=== PATIENT | male | born 1950 | race Caucasian/White ===

== ENCOUNTER 2023-06-10 02:39 | Inpatient (IN) | payer OTHER ==
[2023-06-10] MEDS ORDERED: levETIRAcetam 500 MG/5 ML INJECTION VIAL IVPB ONE ×3 (02:45→22:16)
[2023-06-10] MEDS ORDERED: SODIUM CHLORIDE 0.9% 500 ML INFUS.BAG IV ONE (02:52)
[2023-06-10] MEDS ORDERED: VANCOMYCIN 1,000 MG in DEXTROSE 5%-WATER - 250 ML IVPB ONE (02:58)
[2023-06-10] MEDS ORDERED: PIPERACILLIN/TAZOB 4.5 GM 4.5 GM in DEXTROSE 5%-WATER 100 ML IVPB ONE (02:58)
[2023-06-10] MEDS ORDERED: ACETAMINOPHEN 1000 MG/100 ML BAG IVPB ONE ×2 (03:03→11:01)
[2023-06-10 03:18] LABS: VENOUS BASE EXCESS -1.3 mmol/L (-2-2); VENOUS O2 SATURATION 57.8 % (70-80); VENOUS PCO2 42.1 mmHg (38-52); VENOUS PH 7.373 (7.310-7.410)
[2023-06-10 03:21] LABS: BASO % 0.1 % (0-2.0); HEMATOCRIT 37.7 % (35.4-49); HEMOGLOBIN 12.8 GM/dL (11.7-16.9); LYMPH % 6.9 % (8-40); MCHC 33.9 g/dl (32.0-35.9); MEAN CELL VOLUME 88.4 fl (80-96); MEAN PLT VOLUME 7.8 fl (7.5-11.1); PLATELET COUNT 281 10^3/uL (134-434); RBC 4.26 M/mm3 (4.00-5.60); WHITE BLOOD COUNT 10.3 K/mm3 (4.0-10.0)
[2023-06-10 03:38] LABS: POTASSIUM 3.8 mmol/L (3.5-5.1)
[2023-06-10 03:41] LABS: ALBUMIN 3.9 g/dl (3.4-5.0); BLOOD UREA NITROGEN 84.6 mg/dL (7-18); MAGNESIUM 2.7 mg/dL (1.8-2.4)
[2023-06-10 03:44] LABS: CREATININE 3.2 mg/dL (0.55-1.3)
[2023-06-10 03:45] LABS: TOT PROT 7.6 g/dl (6.4-8.2)
[2023-06-10 03:46] LABS: BILIRUBIN,TOTAL 0.6 mg/dL (0.2-1)
[2023-06-10] MEDS ORDERED: PIPERACILLIN/TAZOB 4.5 GM 4.5 GM/100 ML BAG IVPB ONE (03:55)
[2023-06-10] MEDS ORDERED: VANCOMYCIN 1 GRAM (PRE-DOCKED) 1,000 MG/250 ML BAG IVPB ONE ×2 (03:56→22:16)
[2023-06-10 04:02] LABS: LACTIC ACID 3.1 mmol/L (0.4-2.0)
[2023-06-10 04:35] LABS: EPI CELLS 26 /uL (0-25.1); HYALINE CASTS 1 /uL (0-3.1); URINE APPEARANCE CLEAR; URINE BACTERIA 3936 /uL (0-1359); URINE BILIRUBIN NEGATIVE (NEGATIVE); URINE COLOR YELLOW; URINE GLUCOSE (UA) NEGATIVE (NEGATIVE); URINE KETONE TRACE (NEGATIVE); URINE LEUK ESTERASE 1+ (NEGATIVE); URINE NITRITE NEGATIVE (NEGATIVE); URINE PROTEIN TRACE (NEGATIVE); URINE RBC 176 /uL (0-23.9); URINE WBC 91 /uL (0-25.8)
[2023-06-10] MEDS ORDERED: POTASSIUM CHLORIDE 10 MEQ in SODIUM CHLORIDE 0.45% 1,000 ML IVPB SCH (06:30)
[2023-06-10 08:24] LABS: LACTIC ACID 2.1 mmol/L (0.4-2.0)
[2023-06-10] MEDS: SODIUM CHLORIDE 0.45% 1,000 ML IV SCH (08:31)
[2023-06-10] MEDS ORDERED: PIPERACILLIN/TAZOB 2.25 GM 2.25 GM/50 ML BAG IVPB ONE ×2 (09:24→18:20)
[2023-06-10] MEDS ORDERED: ACETAMINOPHEN INJECTION 100 ML IVPB ONE (09:42)
[2023-06-10] MEDS: PIPERACILLIN/TAZOB 2.25 GM 2.25 GM in DEXTROSE 5%-WATER - 50 ML IVPB SCH ×2 (09:56→18:21)
[2023-06-10] MEDS ORDERED: PIPERACILLIN/TAZOB 2.25 GM 2.25 GM in DEXTROSE 5%-WATER - 50 ML IVPB SCH (10:00)
[2023-06-10] MEDS ORDERED: SODIUM CHLORIDE 500 ML IV STA (11:01)
[2023-06-10] MEDS ORDERED: D5-1/2NS+20 MEQ KCL - 20 MEQ/1,000 ML INFUS.BAG IV SCH ×2 (11:15)
[2023-06-10] MEDS ORDERED: VANCOMYCIN/WATER FOR INJ (PEG) 1,000 MG/200 ML BAG IVPB SCH (22:00)
[2023-06-10] MEDS ORDERED: levETIRAcetam 500 MG/5 ML INJECTION VIAL IVPB SCH (22:00)
[2023-06-10] MEDS: levETIRAcetam 500 MG/5 ML INJECTION VIAL IVPB SCH (22:24)
[2023-06-10] MEDS ORDERED: diazePAM CARPU-JECT 10 MG/2 ML DISP.SYRIN IVPUSH ONE (22:42)
[2023-06-10] MEDS ORDERED: diazePAM CARPU-JECT 10 MG/2 ML DISP.SYRIN ONE (22:45)
[2023-06-11] MEDS: PIPERACILLIN/TAZOB 2.25 GM 2.25 GM in DEXTROSE 5%-WATER - 50 ML IVPB SCH ×4 (02:10→18:22)
[2023-06-11] MEDS ORDERED: PIPERACILLIN/TAZOB 2.25 GM 2.25 GM/50 ML BAG IVPB ONE (02:13)
[2023-06-11] MEDS ORDERED: VANCOMYCIN 1 GM PREMIX - 1 GM/200 ML BAG IVPB SCH (04:00)
[2023-06-11] MEDS ORDERED: VANCOMYCIN 1,000 MG in DEXTROSE 5%-WATER - 250 ML IVPB SCH (04:00)
[2023-06-11] MEDS ORDERED: CEFTRIAXONE 2 GM-D5W BAG 2 GM/50 ML BAG IVPB ONE (12:02)
[2023-06-11 12:10] LABS: HEMOGLOBIN 12.6 GM/dL (11.7-16.9); MCH 29.8 pg (25.7-33.7); MCHC 33.1 g/dl (32.0-35.9); MEAN CELL VOLUME 90.1 fl (80-96); MEAN PLT VOLUME 8.2 fl (7.5-11.1); PLATELET COUNT 261 10^3/uL (134-434); RBC 4.22 M/mm3 (4.00-5.60); RDW 14.5 % (11.9-15.9); WHITE BLOOD COUNT 11.4 K/mm3 (4.0-10.0)
[2023-06-11] MEDS ORDERED: CEFTRIAXONE 1 GM in DEXTROSE 5%-WATER 100 ML IVPB ONE (12:22)
[2023-06-11 12:24] LABS: CALCIUM 9.4 mg/dL (8.5-10.1); MAGNESIUM 2.9 mg/dL (1.8-2.4)
[2023-06-11 12:28] LABS: CREATININE 1.5 mg/dL (0.55-1.3); PHOSPHOROUS 2.6 mg/dL (2.5-4.9)
[2023-06-11 12:40] LABS: BLOOD UREA NITROGEN 58.1 mg/dL (7-18)
[2023-06-11] MEDS: levETIRAcetam 500 MG/5 ML INJECTION VIAL IVPB SCH ×2 (12:42→21:38)
[2023-06-11] MEDS: SODIUM CHLORIDE 0.45% 1,000 ML IV SCH (12:55)
[2023-06-11] MEDS: LEVALBUTEROL HCL 0.31 MG/3 ML VIAL.NEB IH SCH ×2 (15:10→21:24)
[2023-06-11] MEDS ORDERED: levETIRAcetam 500 MG/5 ML INJECTION VIAL IVPB ONE (16:51)
[2023-06-12] MEDS: PIPERACILLIN/TAZOB 2.25 GM 2.25 GM in DEXTROSE 5%-WATER - 50 ML IVPB SCH ×3 (02:34→17:23)
[2023-06-12] MEDS ORDERED: ACETAMINOPHEN 1000 MG/100 ML BAG IVPB ONE (06:08)
[2023-06-12] MEDS: LEVALBUTEROL HCL 0.31 MG/3 ML VIAL.NEB IH SCH ×3 (08:01→19:52)
[2023-06-12] MEDS: levETIRAcetam 500 MG/5 ML INJECTION VIAL IVPB SCH ×2 (09:56→21:49)
[2023-06-12] MEDS ORDERED: ACETAMINOPHEN 325 MG TABLET (FP) PO PRN (10:35)
[2023-06-12] MEDS: SODIUM CHLORIDE 0.45% 1,000 ML IV SCH (12:33)
[2023-06-12] MEDS ORDERED: METOPROLOL TARTRATE 5 MG/5 ML VIAL IVPUSH PRN (14:28)
[2023-06-12] MEDS: ACETAMINOPHEN 1000 MG/100 ML BAG IVPB PRN (14:48)
[2023-06-13] MEDS: PIPERACILLIN/TAZOB 2.25 GM 2.25 GM in DEXTROSE 5%-WATER - 50 ML IVPB SCH ×3 (01:04→18:31)
[2023-06-13] MEDS: ACETAMINOPHEN 1000 MG/100 ML BAG IVPB PRN ×2 (02:51→16:06)
[2023-06-13 07:09] LABS: BASO % 0.3 % (0-2.0); EOS % 0.2 % (0-4.5); HEMATOCRIT 37.7 % (35.4-49); HEMOGLOBIN 12.2 GM/dL (11.7-16.9); LYMPH % 9.4 % (8-40); MCH 30.1 pg (25.7-33.7); MCHC 32.4 g/dl (32.0-35.9); MEAN CELL VOLUME 92.9 fl (80-96); MEAN PLT VOLUME 8.4 fl (7.5-11.1); MONO % 5.5 % (3.8-10.2); NEUT % 84.6 % (42.8-82.8); PLATELET COUNT 235 10^3/uL (134-434); RBC 4.06 M/mm3 (4.00-5.60); RDW 14.4 % (11.9-15.9); WHITE BLOOD COUNT 9.9 K/mm3 (4.0-10.0)
[2023-06-13 07:17] LABS: POTASSIUM 4.1 mmol/L (3.5-5.1)
[2023-06-13] MEDS: LEVALBUTEROL HCL 0.31 MG/3 ML VIAL.NEB IH SCH ×3 (07:20→20:45)
[2023-06-13 07:22] LABS: BLOOD UREA NITROGEN 40.8 mg/dL (7-18); CALCIUM 8.7 mg/dL (8.5-10.1)
[2023-06-13 07:26] LABS: BILIRUBIN,TOTAL 1.2 mg/dL (0.2-1); CREATININE 1.5 mg/dL (0.55-1.3)
[2023-06-13 07:27] LABS: TOT PROT 6.9 g/dl (6.4-8.2)
[2023-06-13 07:38] LABS: ALBUMIN 3.1 g/dl (3.4-5.0)
[2023-06-13] MEDS: levETIRAcetam 500 MG/5 ML INJECTION VIAL IVPB SCH ×2 (10:39→22:57)
[2023-06-13] MEDS: SODIUM CHLORIDE 0.45% 1,000 ML IV SCH (10:39)
[2023-06-13] MEDS ORDERED: DEXTROSE 5%-WATER - 1,000 ML IV SCH (15:30)
[2023-06-13] MEDS: VALPROATE SODIUM INJECTION 500 MG in SODIUM CHLORIDE 100 ML IVPB SCH (21:27)
[2023-06-13] MEDS ORDERED: VALPROATE SODIUM 500 MG/5 ML VIAL IVPB SCH (22:00)
[2023-06-14] MEDS: PIPERACILLIN/TAZOB 2.25 GM 2.25 GM in DEXTROSE 5%-WATER - 50 ML IVPB SCH ×3 (03:15→17:29)
[2023-06-14] MEDS: ACETAMINOPHEN 1000 MG/100 ML BAG IVPB PRN ×2 (03:40→15:06)
[2023-06-14 07:33] LABS: BASO % 0.2 % (0-2.0); EOS % 0.7 % (0-4.5); HEMATOCRIT 35.8 % (35.4-49); HEMOGLOBIN 12.1 GM/dL (11.7-16.9); LYMPH % 8.5 % (8-40); MCH 30.5 pg (25.7-33.7); MCHC 33.7 g/dl (32.0-35.9); MEAN CELL VOLUME 90.4 fl (80-96); MEAN PLT VOLUME 8.5 fl (7.5-11.1); NEUT % 84.6 % (42.8-82.8); PLATELET COUNT 238 10^3/uL (134-434); RBC 3.96 M/mm3 (4.00-5.60); RDW 14.3 % (11.9-15.9); WHITE BLOOD COUNT 11.4 K/mm3 (4.0-10.0)
[2023-06-14] MEDS: LEVALBUTEROL HCL 0.31 MG/3 ML VIAL.NEB IH SCH ×3 (08:30→21:03)
[2023-06-14 08:36] LABS: POTASSIUM 3.5 mmol/L (3.5-5.1)
[2023-06-14 08:38] LABS: ALBUMIN 2.9 g/dl (3.4-5.0); CALCIUM 8.4 mg/dL (8.5-10.1)
[2023-06-14 08:39] LABS: BLOOD UREA NITROGEN 50.7 mg/dL (7-18); MAGNESIUM 2.8 mg/dL (1.8-2.4)
[2023-06-14 08:42] LABS: CREATININE 1.5 mg/dL (0.55-1.3); PHOSPHOROUS 3.2 mg/dL (2.5-4.9)
[2023-06-14 08:43] LABS: BILIRUBIN,TOTAL 0.8 mg/dL (0.2-1); TOT PROT 6.8 g/dl (6.4-8.2)
[2023-06-14] MEDS: levETIRAcetam 500 MG/5 ML INJECTION VIAL IVPB SCH ×2 (09:11→23:44)
[2023-06-14] MEDS: VALPROATE SODIUM INJECTION 500 MG in SODIUM CHLORIDE 100 ML IVPB SCH ×2 (10:16→23:45)
[2023-06-14] MEDS: POTASSIUM CHLORIDE 10 MEQ in DEXTROSE 5%-WATER - 1,000 ML IV SCH (18:11)
[2023-06-15] MEDS: ACETAMINOPHEN 1000 MG/100 ML BAG IVPB PRN ×2 (02:04→16:52)
[2023-06-15] MEDS: PIPERACILLIN/TAZOB 2.25 GM 2.25 GM in DEXTROSE 5%-WATER - 50 ML IVPB SCH ×2 (02:05→09:45)
[2023-06-15] MEDS: POTASSIUM CHLORIDE 10 MEQ in DEXTROSE 5%-WATER - 1,000 ML IV SCH ×2 (06:33→12:48)
[2023-06-15 07:56] LABS: POTASSIUM 3.9 mmol/L (3.5-5.1)
[2023-06-15 08:09] LABS: ALBUMIN 2.5 g/dl (3.4-5.0); BLOOD UREA NITROGEN 40.8 mg/dL (7-18)
[2023-06-15 08:12] LABS: CREATININE 1.3 mg/dL (0.55-1.3)
[2023-06-15 08:14] LABS: BILIRUBIN,TOTAL 0.8 mg/dL (0.2-1); TOT PROT 6.3 g/dl (6.4-8.2)
[2023-06-15] MEDS: LEVALBUTEROL HCL 0.31 MG/3 ML VIAL.NEB IH SCH ×3 (09:00→20:45)
[2023-06-15] MEDS: levETIRAcetam 500 MG/5 ML INJECTION VIAL IVPB SCH ×2 (09:15→21:24)
[2023-06-15] MEDS: VALPROATE SODIUM INJECTION 500 MG in SODIUM CHLORIDE 100 ML IVPB SCH ×2 (12:00→21:28)
[2023-06-15 12:30] VITALS: BMI 17.6
[2023-06-15] MEDS: VANCOMYCIN/WATER FOR INJ (PEG) 1,000 MG/200 ML BAG IVPB SCH (17:34)
[2023-06-15] MEDS: PIPERACILLIN/TAZOB 3.375 GM 3.375 GM in DEXTROSE 5%-WATER - 50 ML IVPB SCH (21:23)
[2023-06-15] MEDS: HEPARIN NA (PORCINE) 5,000 UNITS/ML 1ML VIAL SQ SCH (21:41)
[2023-06-16] MEDS: PIPERACILLIN/TAZOB 3.375 GM 3.375 GM in DEXTROSE 5%-WATER - 50 ML IVPB SCH ×4 (02:03→22:39)
[2023-06-16] MEDS: POTASSIUM CHLORIDE 10 MEQ in DEXTROSE 5%-WATER - 1,000 ML IV SCH ×3 (02:04→18:44)
[2023-06-16] MEDS: LEVALBUTEROL HCL 0.31 MG/3 ML VIAL.NEB IH SCH ×3 (07:39→21:19)
[2023-06-16] MEDS: HEPARIN NA (PORCINE) 5,000 UNITS/ML 1ML VIAL SQ SCH ×2 (09:16→22:41)
[2023-06-16] MEDS: levETIRAcetam 500 MG/5 ML INJECTION VIAL IVPB SCH ×2 (09:45→23:50)
[2023-06-16] MEDS: VALPROATE SODIUM INJECTION 500 MG in SODIUM CHLORIDE 100 ML IVPB SCH ×2 (10:15→23:27)
[2023-06-16 13:10] LABS: HEMATOCRIT 32.6 % (35.4-49); HEMOGLOBIN 10.5 GM/dL (11.7-16.9); MCH 30.1 pg (25.7-33.7); MCHC 32.3 g/dl (32.0-35.9); MEAN CELL VOLUME 93.3 fl (80-96); MEAN PLT VOLUME 9.2 fl (7.5-11.1); PLATELET COUNT 173 10^3/uL (134-434); RDW 14.3 % (11.9-15.9); WHITE BLOOD COUNT 8.9 K/mm3 (4.0-10.0)
[2023-06-16 13:33] LABS: POTASSIUM 3.7 mmol/L (3.5-5.1)
[2023-06-16 13:35] LABS: CALCIUM 8.3 mg/dL (8.5-10.1)
[2023-06-16 13:36] LABS: ALBUMIN 2.3 g/dl (3.4-5.0); BLOOD UREA NITROGEN 26.3 mg/dL (7-18); MAGNESIUM 2.5 mg/dL (1.8-2.4)
[2023-06-16 13:38] LABS: PHOSPHOROUS 2.4 mg/dL (2.5-4.9)
[2023-06-16 13:39] LABS: BILIRUBIN,TOTAL 0.5 mg/dL (0.2-1); TOT PROT 6.1 g/dl (6.4-8.2)
[2023-06-16] MEDS: ACETAMINOPHEN 1000 MG/100 ML BAG IVPB PRN (16:46)
[2023-06-16] MEDS: VANCOMYCIN/WATER FOR INJ (PEG) 1,000 MG/200 ML BAG IVPB SCH (17:15)
[2023-06-16] MEDS: CARBIDOPA/LEVODOPA 25/250 TABLET (FP) NGT SCH ×2 (18:56→22:41)
[2023-06-17] MEDS: PIPERACILLIN/TAZOB 3.375 GM 3.375 GM in DEXTROSE 5%-WATER - 50 ML IVPB SCH ×4 (03:30→21:27)
[2023-06-17] MEDS: POTASSIUM CHLORIDE 10 MEQ in DEXTROSE 5%-WATER - 1,000 ML IV SCH (06:24)
[2023-06-17] MEDS: LEVALBUTEROL HCL 0.31 MG/3 ML VIAL.NEB IH SCH ×3 (07:15→20:35)
[2023-06-17 07:48] LABS: BASO % 0.2 % (0-2.0); EOS % 2.2 % (0-4.5); HEMATOCRIT 31.1 % (35.4-49); HEMOGLOBIN 10.2 GM/dL (11.7-16.9); LYMPH % 5.8 % (8-40); MCH 30.1 pg (25.7-33.7); MEAN CELL VOLUME 91.3 fl (80-96); MEAN PLT VOLUME 9.8 fl (7.5-11.1); MONO % 2.7 % (3.8-10.2); NEUT % 89.1 % (42.8-82.8); PLATELET COUNT 182 10^3/uL (134-434); RDW 14.2 % (11.9-15.9); WHITE BLOOD COUNT 8.3 K/mm3 (4.0-10.0)
[2023-06-17 08:00] LABS: POTASSIUM 3.7 mmol/L (3.5-5.1)
[2023-06-17 08:06] LABS: ALBUMIN 2.2 g/dl (3.4-5.0); BLOOD UREA NITROGEN 25.4 mg/dL (7-18); CALCIUM 8.3 mg/dL (8.5-10.1); MAGNESIUM 2.3 mg/dL (1.8-2.4)
[2023-06-17 08:08] LABS: CREATININE 0.9 mg/dL (0.55-1.3)
[2023-06-17 08:10] LABS: BILIRUBIN,TOTAL 0.4 mg/dL (0.2-1); PHOSPHOROUS 2.8 mg/dL (2.5-4.9); TOT PROT 5.9 g/dl (6.4-8.2)
[2023-06-17] MEDS: CARBIDOPA/LEVODOPA 25/250 TABLET (FP) NGT SCH ×4 (10:21→22:29)
[2023-06-17] MEDS: levETIRAcetam 500 MG/5 ML INJECTION VIAL IVPB SCH ×2 (10:21→22:27)
[2023-06-17] MEDS: AMINO ACIDS 4.25%/D5W 1,000 ML IV SCH (10:21)
[2023-06-17] MEDS: HEPARIN NA (PORCINE) 5,000 UNITS/ML 1ML VIAL SQ SCH ×2 (10:21→22:29)
[2023-06-17] MEDS: VALPROATE SODIUM INJECTION 500 MG in SODIUM CHLORIDE 100 ML IVPB SCH ×2 (11:13→22:26)
[2023-06-17] MEDS ORDERED: LORazepam 2 MG/ML SDV VIAL IVPB ONE (14:07)
[2023-06-17] MEDS: ACETAMINOPHEN 1000 MG/100 ML BAG IVPB PRN ×2 (16:30→22:29)
[2023-06-17] MEDS: VANCOMYCIN/WATER FOR INJ (PEG) 1,000 MG/200 ML BAG IVPB SCH ×2 (17:03→19:14)
[2023-06-18] MEDS: PIPERACILLIN/TAZOB 3.375 GM 3.375 GM in DEXTROSE 5%-WATER - 50 ML IVPB SCH ×4 (02:09→22:15)
[2023-06-18] MEDS ORDERED: METOPROLOL TARTRATE 5 MG/5 ML VIAL IVPUSH PRN (07:14)
[2023-06-18] MEDS: LEVALBUTEROL HCL 0.31 MG/3 ML VIAL.NEB IH SCH ×3 (08:16→20:40)
[2023-06-18] MEDS: AMINO ACIDS 4.25%/D5W 1,000 ML IV SCH (09:08)
[2023-06-18 09:28] LABS: HEMATOCRIT 29.4 % (35.4-49); HEMOGLOBIN 9.8 GM/dL (11.7-16.9); MCH 30.7 pg (25.7-33.7); MCHC 33.3 g/dl (32.0-35.9); MEAN CELL VOLUME 92.3 fl (80-96); MEAN PLT VOLUME 9.9 fl (7.5-11.1); PLATELET COUNT 166 10^3/uL (134-434); RBC 3.19 M/mm3 (4.00-5.60); RDW 14.4 % (11.9-15.9); WHITE BLOOD COUNT 11.5 K/mm3 (4.0-10.0)
[2023-06-18] MEDS: HEPARIN NA (PORCINE) 5,000 UNITS/ML 1ML VIAL SQ SCH ×2 (09:29→22:22)
[2023-06-18] MEDS: CARBIDOPA/LEVODOPA 25/250 TABLET (FP) NGT SCH ×4 (09:29→22:22)
[2023-06-18 09:43] LABS: POTASSIUM 3.8 mmol/L (3.5-5.1)
[2023-06-18] MEDS: levETIRAcetam 500 MG/5 ML INJECTION VIAL IVPB SCH ×2 (09:54→22:22)
[2023-06-18 10:02] LABS: CALCIUM 8.3 mg/dL (8.5-10.1)
[2023-06-18 10:03] LABS: ALBUMIN 2.2 g/dl (3.4-5.0); BLOOD UREA NITROGEN 29.4 mg/dL (7-18); MAGNESIUM 2.5 mg/dL (1.8-2.4)
[2023-06-18 10:05] LABS: PHOSPHOROUS 2.6 mg/dL (2.5-4.9)
[2023-06-18 10:06] LABS: CREATININE 0.9 mg/dL (0.55-1.3)
[2023-06-18 10:07] LABS: BILIRUBIN,TOTAL 0.5 mg/dL (0.2-1); TOT PROT 6.1 g/dl (6.4-8.2)
[2023-06-18 10:11] LABS: ANISOCYTOSIS 1+; MACROCYTOSIS 0
[2023-06-18] MEDS: VALPROATE SODIUM INJECTION 500 MG in SODIUM CHLORIDE 100 ML IVPB SCH (10:38)
[2023-06-18 12:08] LABS: BILIRUBIN,DIRECT 0.2 mg/dL (0.0-0.2)
[2023-06-18 12:10] LABS: BILIRUBIN,TOTAL 0.5 mg/dL (0.2-1); TOT PROT 5.7 g/dl (6.4-8.2)
[2023-06-18 13:24] LABS: HIV INTERPRETATION NEGATIVE (NEGATIVE)
[2023-06-18] MEDS ORDERED: VANCOMYCIN/WATER FOR INJ (PEG) 1,000 MG/200 ML BAG IVPB SCH (17:30)
[2023-06-18] MEDS: ACETAMINOPHEN 1000 MG/100 ML BAG IVPB PRN (23:05)
[2023-06-19] MEDS: VALPROATE SODIUM INJECTION 500 MG in SODIUM CHLORIDE 100 ML IVPB SCH ×3 (00:08→21:39)
[2023-06-19] MEDS: PIPERACILLIN/TAZOB 3.375 GM 3.375 GM in DEXTROSE 5%-WATER - 50 ML IVPB SCH ×4 (02:46→20:45)
[2023-06-19] MEDS: CARBIDOPA/LEVODOPA 25/250 TABLET (FP) NGT SCH ×5 (06:38→21:38)
[2023-06-19] MEDS: AMINO ACIDS 4.25%/D5W 1,000 ML IV SCH ×2 (06:48→11:03)
[2023-06-19] MEDS: LEVALBUTEROL HCL 0.31 MG/3 ML VIAL.NEB IH SCH ×3 (07:35→19:39)
[2023-06-19 09:38] LABS: BASO % 0.3 % (0-2.0); EOS % 1.3 % (0-4.5); HEMATOCRIT 31.4 % (35.4-49); HEMOGLOBIN 9.9 GM/dL (11.7-16.9); LYMPH % 8.4 % (8-40); MCH 29.5 pg (25.7-33.7); MCHC 31.6 g/dl (32.0-35.9); MEAN CELL VOLUME 93.5 fl (80-96); MONO % 3.2 % (3.8-10.2); NEUT % 86.8 % (42.8-82.8); PLATELET COUNT 228 10^3/uL (134-434); RBC 3.36 M/mm3 (4.00-5.60); RDW 14.3 % (11.9-15.9); WHITE BLOOD COUNT 8.8 K/mm3 (4.0-10.0)
[2023-06-19 10:05] LABS: POTASSIUM 3.8 mmol/L (3.5-5.1)
[2023-06-19 10:36] LABS: ALBUMIN 1.9 g/dl (3.4-5.0); BLOOD UREA NITROGEN 30.4 mg/dL (7-18); CALCIUM 8.4 mg/dL (8.5-10.1); MAGNESIUM 2.5 mg/dL (1.8-2.4)
[2023-06-19 10:39] LABS: CREATININE 0.8 mg/dL (0.55-1.3)
[2023-06-19 10:41] LABS: BILIRUBIN,TOTAL 0.4 mg/dL (0.2-1); TOT PROT 5.7 g/dl (6.4-8.2)
[2023-06-19] MEDS: levETIRAcetam 500 MG/5 ML INJECTION VIAL IVPB SCH ×2 (11:01→21:38)
[2023-06-19] MEDS: HEPARIN NA (PORCINE) 5,000 UNITS/ML 1ML VIAL SQ SCH ×2 (11:02→21:38)
[2023-06-19] MEDS: ACETAMINOPHEN 1000 MG/100 ML BAG IVPB PRN (21:36)
[2023-06-20] MEDS: PIPERACILLIN/TAZOB 3.375 GM 3.375 GM in DEXTROSE 5%-WATER - 50 ML IVPB SCH ×4 (02:45→20:39)
[2023-06-20] MEDS: CARBIDOPA/LEVODOPA 25/250 TABLET (FP) NGT SCH ×5 (05:31→21:43)
[2023-06-20] MEDS: ACETAMINOPHEN 1000 MG/100 ML BAG IVPB PRN ×3 (05:31→18:34)
[2023-06-20] MEDS: LEVALBUTEROL HCL 0.31 MG/3 ML VIAL.NEB IH SCH ×3 (07:15→20:01)
[2023-06-20 08:36] LABS: BASO % 0.3 % (0-2.0); EOS % 2.1 % (0-4.5); HEMATOCRIT 29.8 % (35.4-49); HEMOGLOBIN 9.6 GM/dL (11.7-16.9); LYMPH % 12.8 % (8-40); MCH 29.9 pg (25.7-33.7); MCHC 32.1 g/dl (32.0-35.9); MEAN CELL VOLUME 93.2 fl (80-96); MEAN PLT VOLUME 9.1 fl (7.5-11.1); MONO % 4.3 % (3.8-10.2); NEUT % 80.5 % (42.8-82.8); PLATELET COUNT 265 10^3/uL (134-434); RDW 14.1 % (11.9-15.9); WHITE BLOOD COUNT 6.9 K/mm3 (4.0-10.0)
[2023-06-20] MEDS: HEPARIN NA (PORCINE) 5,000 UNITS/ML 1ML VIAL SQ SCH ×2 (09:07→21:43)
[2023-06-20] MEDS: levETIRAcetam 500 MG/5 ML INJECTION VIAL IVPB SCH ×2 (09:08→21:42)
[2023-06-20] MEDS: VALPROATE SODIUM INJECTION 500 MG in SODIUM CHLORIDE 100 ML IVPB SCH ×2 (09:09→22:15)
[2023-06-20 09:49] LABS: POTASSIUM 3.9 mmol/L (3.5-5.1)
[2023-06-20 10:03] LABS: BLOOD UREA NITROGEN 26.9 mg/dL (7-18)
[2023-06-20 10:04] LABS: CALCIUM 8.7 mg/dL (8.5-10.1); MAGNESIUM 2.5 mg/dL (1.8-2.4)
[2023-06-20 10:06] LABS: CREATININE 0.9 mg/dL (0.55-1.3)
[2023-06-20 10:08] LABS: TOT PROT 5.8 g/dl (6.4-8.2)
[2023-06-20 10:10] LABS: BILIRUBIN,TOTAL 0.3 mg/dL (0.2-1)
[2023-06-20] MEDS: AMINO ACIDS 4.25%/D5W 1,000 ML IV SCH ×2 (13:35→21:41)
[2023-06-21] MEDS: ACETAMINOPHEN 1000 MG/100 ML BAG IVPB PRN ×3 (01:20→21:38)
[2023-06-21] MEDS: PIPERACILLIN/TAZOB 3.375 GM 3.375 GM in DEXTROSE 5%-WATER - 50 ML IVPB SCH ×4 (02:15→22:15)
[2023-06-21] MEDS: CARBIDOPA/LEVODOPA 25/250 TABLET (FP) NGT SCH ×5 (06:18→22:07)
[2023-06-21] MEDS: LEVALBUTEROL HCL 0.31 MG/3 ML VIAL.NEB IH SCH ×3 (08:00→20:36)
[2023-06-21 09:25] LABS: BASO % 0.4 % (0-2.0); EOS % 2.1 % (0-4.5); HEMATOCRIT 30.7 % (35.4-49); HEMOGLOBIN 9.8 GM/dL (11.7-16.9); LYMPH % 11.4 % (8-40); MCH 29.6 pg (25.7-33.7); MCHC 31.9 g/dl (32.0-35.9); MEAN CELL VOLUME 92.8 fl (80-96); MONO % 5.2 % (3.8-10.2); NEUT % 80.9 % (42.8-82.8); PLATELET COUNT 284 10^3/uL (134-434); RBC 3.31 M/mm3 (4.00-5.60); RDW 14.2 % (11.9-15.9); WHITE BLOOD COUNT 6.1 K/mm3 (4.0-10.0)
[2023-06-21 09:41] LABS: POTASSIUM 3.9 mmol/L (3.5-5.1)
[2023-06-21 09:48] LABS: BLOOD UREA NITROGEN 30.4 mg/dL (7-18); CALCIUM 8.3 mg/dL (8.5-10.1); MAGNESIUM 2.4 mg/dL (1.8-2.4)
[2023-06-21 09:51] LABS: CREATININE 0.8 mg/dL (0.55-1.3)
[2023-06-21 09:53] LABS: BILIRUBIN,TOTAL 0.4 mg/dL (0.2-1); TOT PROT 5.9 g/dl (6.4-8.2)
[2023-06-21] MEDS: HEPARIN NA (PORCINE) 5,000 UNITS/ML 1ML VIAL SQ SCH ×2 (10:32→21:52)
[2023-06-21] MEDS: VALPROATE SODIUM INJECTION 500 MG in SODIUM CHLORIDE 100 ML IVPB SCH ×2 (10:32→23:07)
[2023-06-21] MEDS: AMINO ACIDS 4.25%/D5W 1,000 ML IV SCH ×2 (10:36→21:51)
[2023-06-21] MEDS: levETIRAcetam 500 MG/5 ML INJECTION VIAL IVPB SCH (10:37)
[2023-06-22] MEDS: levETIRAcetam 500 MG/5 ML INJECTION VIAL IVPB SCH ×3 (00:30→22:00)
[2023-06-22] MEDS: PIPERACILLIN/TAZOB 3.375 GM 3.375 GM in DEXTROSE 5%-WATER - 50 ML IVPB SCH ×4 (02:11→21:29)
[2023-06-22] MEDS: CARBIDOPA/LEVODOPA 25/250 TABLET (FP) NGT SCH ×5 (05:53→22:01)
[2023-06-22] MEDS: LEVALBUTEROL HCL 0.31 MG/3 ML VIAL.NEB IH SCH ×3 (07:59→20:51)
[2023-06-22 08:33] LABS: BASO % 0.6 % (0-2.0); EOS % 2.4 % (0-4.5); HEMATOCRIT 30.5 % (35.4-49); HEMOGLOBIN 9.8 GM/dL (11.7-16.9); LYMPH % 17.2 % (8-40); MCH 30.1 pg (25.7-33.7); MCHC 32.3 g/dl (32.0-35.9); MEAN CELL VOLUME 93.3 fl (80-96); MONO % 4.5 % (3.8-10.2); NEUT % 75.3 % (42.8-82.8); PLATELET COUNT 320 10^3/uL (134-434); RBC 3.27 M/mm3 (4.00-5.60); RDW 13.8 % (11.9-15.9); WHITE BLOOD COUNT 5.7 K/mm3 (4.0-10.0)
[2023-06-22 08:35] LABS: POTASSIUM 3.8 mmol/L (3.5-5.1)
[2023-06-22 08:39] LABS: BLOOD UREA NITROGEN 31.4 mg/dL (7-18); MAGNESIUM 2.1 mg/dL (1.8-2.4)
[2023-06-22 08:43] LABS: CREATININE 0.8 mg/dL (0.55-1.3)
[2023-06-22 08:44] LABS: BILIRUBIN,TOTAL 0.4 mg/dL (0.2-1)
[2023-06-22] MEDS: HEPARIN NA (PORCINE) 5,000 UNITS/ML 1ML VIAL SQ SCH ×2 (10:10→22:01)
[2023-06-22] MEDS: ACETAMINOPHEN 1000 MG/100 ML BAG IVPB PRN ×2 (10:17→18:43)
[2023-06-22] MEDS: AMINO ACIDS 4.25%/D5W 1,000 ML IV SCH ×2 (11:17→22:00)
[2023-06-22] MEDS: VALPROATE SODIUM INJECTION 500 MG in SODIUM CHLORIDE 100 ML IVPB SCH ×2 (11:53→22:00)
[2023-06-22] MEDS ORDERED: FUROSEMIDE 40 MG/4 ML INJECTABLE VIAL IVPUSH ONE (12:15)
[2023-06-22 13:59] LABS: PH,URINE 5.5 (5.0-8.0); URINE APPEARANCE CLEAR; URINE BILIRUBIN NEGATIVE (NEGATIVE); URINE COLOR YELLOW; URINE GLUCOSE (UA) NEGATIVE (NEGATIVE); URINE KETONE NEGATIVE (NEGATIVE); URINE LEUK ESTERASE NEGATIVE (NEGATIVE); URINE NITRITE NEGATIVE (NEGATIVE); URINE PROTEIN NEGATIVE (NEGATIVE); URINE UROBILINOGEN 0.2 mg/dL (0.2-1.0)
[2023-06-22] MEDS ORDERED: LORazepam 2 MG/ML SDV VIAL IVPUSH PRN (19:04)
[2023-06-23] MEDS: PIPERACILLIN/TAZOB 3.375 GM 3.375 GM in DEXTROSE 5%-WATER - 50 ML IVPB SCH ×3 (03:22→14:09)
[2023-06-23] MEDS: ACETAMINOPHEN 1000 MG/100 ML BAG IVPB PRN ×2 (06:25→14:07)
[2023-06-23] MEDS: CARBIDOPA/LEVODOPA 25/250 TABLET (FP) NGT SCH ×5 (06:25→22:34)
[2023-06-23] MEDS: LEVALBUTEROL HCL 0.31 MG/3 ML VIAL.NEB IH SCH ×3 (07:54→20:04)
[2023-06-23 08:22] LABS: BASO % 0.2 % (0-2.0); EOS % 1.8 % (0-4.5); HEMATOCRIT 27.7 % (35.4-49); HEMOGLOBIN 9.3 GM/dL (11.7-16.9); LYMPH % 8.6 % (8-40); MCH 30.7 pg (25.7-33.7); MCHC 33.6 g/dl (32.0-35.9); MEAN CELL VOLUME 91.2 fl (80-96); MEAN PLT VOLUME 9.1 fl (7.5-11.1); MONO % 4.3 % (3.8-10.2); NEUT % 85.1 % (42.8-82.8); PLATELET COUNT 268 10^3/uL (134-434); RBC 3.03 M/mm3 (4.00-5.60); RDW 14.2 % (11.9-15.9); WHITE BLOOD COUNT 6.9 K/mm3 (4.0-10.0)
[2023-06-23 08:32] LABS: POTASSIUM 3.2 mmol/L (3.5-5.1)
[2023-06-23 08:42] LABS: BLOOD UREA NITROGEN 39.3 mg/dL (7-18); CALCIUM 8.1 mg/dL (8.5-10.1); MAGNESIUM 2.1 mg/dL (1.8-2.4)
[2023-06-23 08:43] LABS: ALBUMIN 1.9 g/dl (3.4-5.0)
[2023-06-23 08:46] LABS: CREATININE 0.9 mg/dL (0.55-1.3)
[2023-06-23 08:47] LABS: BILIRUBIN,TOTAL 0.4 mg/dL (0.2-1); TOT PROT 5.5 g/dl (6.4-8.2)
[2023-06-23] MEDS: levETIRAcetam 500 MG/5 ML INJECTION VIAL IVPB SCH ×2 (10:18→22:32)
[2023-06-23] MEDS: HEPARIN NA (PORCINE) 5,000 UNITS/ML 1ML VIAL SQ SCH ×2 (10:18→22:58)
[2023-06-23] MEDS: VALPROATE SODIUM INJECTION 500 MG in SODIUM CHLORIDE 100 ML IVPB SCH ×2 (10:20→22:35)
[2023-06-23] MEDS: AMINO ACIDS 4.25%/D5W 1,000 ML IV SCH ×2 (12:01→22:32)
[2023-06-23] MEDS ORDERED: KCL 10 MEQ IVPB 10 MEQ/100 ML INFUS.BAG IVPB SCH (15:00)
[2023-06-23] MEDS: LORazepam 2 MG/ML SDV VIAL IVPUSH PRN (16:04)
[2023-06-23] MEDS: VANCOMYCIN/WATER FOR INJ (PEG) 750 MG/150 ML BAG IVPB SCH (18:38)
[2023-06-23] MEDS: CEFEPIME HCL 2 GM VIAL (RESTRICTED TO ID) IVPB SCH (22:33)
[2023-06-24] MEDS: ACETAMINOPHEN 1000 MG/100 ML BAG IVPB PRN (00:08)
[2023-06-24] MEDS: LORazepam 2 MG/ML SDV VIAL IVPUSH PRN ×2 (01:03→07:21)
[2023-06-24] MEDS: CARBIDOPA/LEVODOPA 25/250 TABLET (FP) NGT SCH ×5 (05:40→22:47)
[2023-06-24] MEDS: VANCOMYCIN/WATER FOR INJ (PEG) 750 MG/150 ML BAG IVPB SCH ×2 (05:40→17:47)
[2023-06-24] MEDS ORDERED: morphine CARPU-JECT 2 MG/1 ML DISP.SYRIN SQ PRN (07:13)
[2023-06-24] MEDS: LEVALBUTEROL HCL 0.31 MG/3 ML VIAL.NEB IH SCH ×3 (08:46→20:32)
[2023-06-24 09:06] LABS: INR 2.01 (0.83-1.09); PROTHROMBIN TIME (PATIENT) 23.2 SEC (9.7-13.0)
[2023-06-24 09:09] LABS: BASO % 0.2 % (0-2.0); EOS % 0.1 % (0-4.5); HEMATOCRIT 33.1 % (35.4-49); HEMOGLOBIN 10.5 GM/dL (11.7-16.9); LYMPH % 5.2 % (8-40); MCH 29.5 pg (25.7-33.7); MCHC 31.9 g/dl (32.0-35.9); MEAN CELL VOLUME 92.5 fl (80-96); MEAN PLT VOLUME 9.2 fl (7.5-11.1); MONO % 3.8 % (3.8-10.2); NEUT % 90.7 % (42.8-82.8); PLATELET COUNT 369 10^3/uL (134-434); RBC 3.57 M/mm3 (4.00-5.60); RDW 14.1 % (11.9-15.9); WHITE BLOOD COUNT 16.1 K/mm3 (4.0-10.0)
[2023-06-24 09:33] LABS: POTASSIUM 3.1 mmol/L (3.5-5.1)
[2023-06-24 09:35] LABS: CALCIUM 8.4 mg/dL (8.5-10.1)
[2023-06-24 09:36] LABS: BLOOD UREA NITROGEN 39.7 mg/dL (7-18); MAGNESIUM 1.9 mg/dL (1.8-2.4)
[2023-06-24 09:38] LABS: CREATININE 1.3 mg/dL (0.55-1.3)
[2023-06-24 09:40] LABS: BILIRUBIN,TOTAL 0.4 mg/dL (0.2-1)
[2023-06-24] MEDS: HEPARIN NA (PORCINE) 5,000 UNITS/ML 1ML VIAL SQ SCH ×2 (10:31→22:47)
[2023-06-24] MEDS: levETIRAcetam 500 MG/5 ML INJECTION VIAL IVPB SCH ×2 (10:33→22:47)
[2023-06-24] MEDS: PANTOPRAZOLE SODIUM 40 MG VIAL IVPUSH SCH (10:33)
[2023-06-24] MEDS: CEFEPIME HCL 2 GM VIAL (RESTRICTED TO ID) IVPB SCH ×2 (10:33→23:27)
[2023-06-24] MEDS: VALPROATE SODIUM INJECTION 500 MG in SODIUM CHLORIDE 100 ML IVPB SCH ×2 (12:06→22:47)
[2023-06-24] MEDS: AMINO ACIDS 4.25%/D5W 1,000 ML IV SCH (12:06)
[2023-06-24] MEDS ORDERED: POTASSIUM CHLORIDE ORAL LIQUID 20 MEQ/15 ML PO ONE (14:18)
[2023-06-24] MEDS ORDERED: POTASSIUM CHLORIDE ORAL LIQUID 20 MEQ/15 ML NGT ONE ×2 (14:29→16:00)
[2023-06-24] MEDS: CEFEPIME 2 GM in DEXTROSE 5%-WATER 100 ML IVPB SCH (23:26)
[2023-06-25] MEDS: AMINO ACIDS 4.25%/D5W 1,000 ML IV SCH ×3 (00:30→14:15)
[2023-06-25] MEDS: VANCOMYCIN/WATER FOR INJ (PEG) 750 MG/150 ML BAG IVPB SCH (05:22)
[2023-06-25] MEDS: CARBIDOPA/LEVODOPA 25/250 TABLET (FP) NGT SCH ×5 (05:22→21:50)
[2023-06-25] MEDS: LEVALBUTEROL HCL 0.31 MG/3 ML VIAL.NEB IH SCH ×3 (08:15→20:02)
[2023-06-25 09:39] LABS: BASO % 0.3 % (0-2.0); EOS % 1.3 % (0-4.5); HEMATOCRIT 26.3 % (35.4-49); HEMOGLOBIN 8.8 GM/dL (11.7-16.9); LYMPH % 7.9 % (8-40); MCH 30.5 pg (25.7-33.7); MCHC 33.3 g/dl (32.0-35.9); MEAN CELL VOLUME 91.6 fl (80-96); MONO % 5.8 % (3.8-10.2); NEUT % 84.7 % (42.8-82.8); PLATELET COUNT 290 10^3/uL (134-434); RBC 2.87 M/mm3 (4.00-5.60); WHITE BLOOD COUNT 9.3 K/mm3 (4.0-10.0)
[2023-06-25 09:51] LABS: CHLORIDE 113 mmol/L (98-107); SODIUM 144 mmol/L (136-145)
[2023-06-25] MEDS: HEPARIN NA (PORCINE) 5,000 UNITS/ML 1ML VIAL SQ SCH ×2 (10:01→21:50)
[2023-06-25] MEDS: levETIRAcetam 500 MG/5 ML INJECTION VIAL IVPB SCH ×2 (10:02→21:50)
[2023-06-25] MEDS: PANTOPRAZOLE SODIUM 40 MG VIAL IVPUSH SCH (10:02)
[2023-06-25] MEDS: CEFEPIME 2 GM in DEXTROSE 5%-WATER 100 ML IVPB SCH ×2 (10:02→23:27)
[2023-06-25] MEDS: LORazepam 2 MG/ML SDV VIAL IVPUSH PRN (10:02)
[2023-06-25] MEDS: ACETAMINOPHEN 1000 MG/100 ML BAG IVPB PRN ×2 (10:03→18:57)
[2023-06-25 10:06] LABS: ALBUMIN 1.8 g/dl (3.4-5.0); CALCIUM 7.7 mg/dL (8.5-10.1); CO2 22 mmol/L (21-32); CREATININE 0.9 mg/dL (0.55-1.3)
[2023-06-25 10:07] LABS: BLOOD UREA NITROGEN 50.4 mg/dL (7-18); TOT PROT 5.4 g/dl (6.4-8.2)
[2023-06-25 10:08] LABS: BILIRUBIN,TOTAL 0.3 mg/dL (0.2-1)
[2023-06-25 10:09] LABS: ALK PHOS 47 U/L (45-117)
[2023-06-25 10:10] LABS: GLUCOSE,RANDOM 127 mg/dL (74-106); SGOT/AST 33 U/L (15-37); SGPT/ALT 14 U/L (13-61)
[2023-06-25 10:13] LABS: ANION GAP 9 mmol/L (4-13); POTASSIUM 2.7 mmol/L (3.5-5.1)
[2023-06-25 10:27] LABS: INR 1.89 (0.83-1.09); PROTHROMBIN TIME (PATIENT) 21.8 SEC (9.7-13.0)
[2023-06-25] MEDS ORDERED: POTASSIUM CHLORIDE ORAL LIQUID 20 MEQ/15 ML NGT ONE (11:15)
[2023-06-25] MEDS: VALPROATE SODIUM INJECTION 500 MG in SODIUM CHLORIDE 100 ML IVPB SCH ×2 (11:46→21:50)
[2023-06-25] MEDS: KCL 10 MEQ IVPB 10 MEQ/100 ML INFUS.BAG IVPB SCH ×3 (11:51→15:49)
[2023-06-25] MEDS ORDERED: PHYTONADIONE 10 MG/1 ML AMP IVPB ONE ×2 (15:45→18:15)
[2023-06-25] MEDS: FAT EMULSION/OLIVE/SOY/PHOSPHO 250 ML IV SCH (21:48)
[2023-06-25] MEDS ORDERED: FAT EMULSION/OLIVE/SOY (CLINOLIPID) 250 ML EMULSION IV SCH (22:00)
[2023-06-26] MEDS: AMINO ACIDS 4.25%/D5W 1,000 ML IV SCH ×2 (03:04→13:48)
[2023-06-26] MEDS: CARBIDOPA/LEVODOPA 25/250 TABLET (FP) NGT SCH ×5 (06:21→22:22)
[2023-06-26] MEDS: LEVALBUTEROL HCL 0.31 MG/3 ML VIAL.NEB IH SCH ×2 (08:09→15:20)
[2023-06-26] MEDS ORDERED: ACETAMINOPHEN 1000 MG/100 ML BAG IVPB PRN (08:50)
[2023-06-26] MEDS: HEPARIN NA (PORCINE) 5,000 UNITS/ML 1ML VIAL SQ SCH (09:16)
[2023-06-26] MEDS: CEFEPIME 2 GM in DEXTROSE 5%-WATER 100 ML IVPB SCH ×2 (09:16→22:21)
[2023-06-26] MEDS: PANTOPRAZOLE SODIUM 40 MG VIAL IVPUSH SCH (09:16)
[2023-06-26] MEDS: levETIRAcetam 500 MG/5 ML INJECTION VIAL IVPB SCH ×2 (09:17→22:21)
[2023-06-26 09:30] LABS: BASO % 0.4 % (0-2.0); EOS % 1.3 % (0-4.5); HEMATOCRIT 24.4 % (35.4-49); HEMOGLOBIN 8.4 GM/dL (11.7-16.9); LYMPH % 5.7 % (8-40); MCH 30.9 pg (25.7-33.7); MCHC 34.5 g/dl (32.0-35.9); MEAN CELL VOLUME 89.7 fl (80-96); MEAN PLT VOLUME 9.1 fl (7.5-11.1); MONO % 5.6 % (3.8-10.2); PLATELET COUNT 326 10^3/uL (134-434); RBC 2.72 M/mm3 (4.00-5.60); RDW 14.2 % (11.9-15.9); WHITE BLOOD COUNT 7.5 K/mm3 (4.0-10.0)
[2023-06-26 09:31] LABS: INR 1.4 (0.83-1.09); PROTHROMBIN TIME (PATIENT) 16.2 SEC (9.7-13.0)
[2023-06-26] MEDS ORDERED: QUEtiapine FUMARATE 25 MG TABLET PO SCH ×2 (10:00→22:00)
[2023-06-26] MEDS: VALPROATE SODIUM INJECTION 500 MG in SODIUM CHLORIDE 100 ML IVPB SCH ×2 (11:10→21:34)
[2023-06-26] MEDS: QUEtiapine FUMARATE 25 MG TABLET NGT SCH ×2 (11:10→22:22)
[2023-06-26 14:26] LABS: CHLORIDE 113 mmol/L (98-107); SODIUM 142 mmol/L (136-145)
[2023-06-26 14:33] LABS: GLUCOSE,RANDOM 123 mg/dL (74-106)
[2023-06-26 14:34] LABS: ALBUMIN 1.8 g/dl (3.4-5.0); BLOOD UREA NITROGEN 41.3 mg/dL (7-18); CO2 20 mmol/L (21-32)
[2023-06-26 14:35] LABS: MAGNESIUM 2.1 mg/dL (1.8-2.4)
[2023-06-26 14:37] LABS: CREATININE 0.7 mg/dL (0.55-1.3); SGOT/AST 29 U/L (15-37)
[2023-06-26 14:39] LABS: BILIRUBIN,TOTAL 0.2 mg/dL (0.2-1); TOT PROT 5.2 g/dl (6.4-8.2)
[2023-06-26 14:40] LABS: ALK PHOS 46 U/L (45-117)
[2023-06-26 14:49] LABS: SGPT/ALT 25 U/L (13-61)
[2023-06-26 14:51] LABS: ANION GAP 9 mmol/L (4-13); POTASSIUM 2.9 mmol/L (3.5-5.1)
[2023-06-26] MEDS: ACETAMINOPHEN 1000 MG/100 ML BAG IVPB PRN (15:24)
[2023-06-26] MEDS: KCL 10 MEQ IVPB 10 MEQ/100 ML INFUS.BAG IVPB SCH ×3 (16:53→18:54)
[2023-06-26] MEDS: POTASSIUM CHLORIDE ORAL LIQUID 20 MEQ/15 ML NGT SCH ×2 (17:01→22:20)
[2023-06-26] MEDS: POTASSIUM CHLORIDE 20 MEQ in AMINO ACIDS 4.25%/D5W 1,000 ML IV SCH (20:28)
[2023-06-26] MEDS: FAT EMULSION/OLIVE/SOY/PHOSPHO 250 ML IV SCH (21:33)
[2023-06-27] MEDS: CARBIDOPA/LEVODOPA 25/250 TABLET (FP) NGT SCH ×5 (05:32→22:52)
[2023-06-27 09:19] LABS: HEMATOCRIT 29.5 % (35.4-49); HEMOGLOBIN 9.7 GM/dL (11.7-16.9); MCH 29.8 pg (25.7-33.7); MCHC 32.7 g/dl (32.0-35.9); MEAN PLT VOLUME 8.1 fl (7.5-11.1); PLATELET COUNT 441 10^3/uL (134-434); RBC 3.24 M/mm3 (4.00-5.60); WHITE BLOOD COUNT 11.4 K/mm3 (4.0-10.0)
[2023-06-27 09:22] LABS: INR 1.24 (0.83-1.09); PROTHROMBIN TIME (PATIENT) 14.3 SEC (9.7-13.0)
[2023-06-27] MEDS: POTASSIUM CHLORIDE 20 MEQ in AMINO ACIDS 4.25%/D5W 1,000 ML IV SCH (09:22)
[2023-06-27] MEDS: levETIRAcetam 500 MG/5 ML INJECTION VIAL IVPB SCH ×2 (09:37→22:43)
[2023-06-27] MEDS: QUEtiapine FUMARATE 25 MG TABLET NGT SCH ×2 (09:37→22:52)
[2023-06-27] MEDS: PANTOPRAZOLE SODIUM 40 MG VIAL IVPUSH SCH (09:37)
[2023-06-27 09:47] LABS: POTASSIUM 3.7 mmol/L (3.5-5.1)
[2023-06-27 10:06] LABS: CALCIUM 8.9 mg/dL (8.5-10.1)
[2023-06-27 10:07] LABS: MAGNESIUM 2.2 mg/dL (1.8-2.4)
[2023-06-27 10:08] LABS: ALBUMIN 2.1 g/dl (3.4-5.0); BLOOD UREA NITROGEN 31.1 mg/dL (7-18)
[2023-06-27 10:10] LABS: CREATININE 0.7 mg/dL (0.55-1.3)
[2023-06-27 10:11] LABS: BILIRUBIN,TOTAL 0.2 mg/dL (0.2-1); TOT PROT 6.2 g/dl (6.4-8.2)
[2023-06-27] MEDS ORDERED: LORazepam 2 MG/ML SDV VIAL IVPUSH ONE (10:30)
[2023-06-27] MEDS: HEPARIN NA (PORCINE) 5,000 UNITS/ML 1ML VIAL SQ SCH ×2 (10:33→22:45)
[2023-06-27] MEDS: ACETAMINOPHEN 1000 MG/100 ML BAG IVPB PRN ×2 (10:33→18:43)
[2023-06-27] MEDS: VALPROATE SODIUM INJECTION 500 MG in SODIUM CHLORIDE 100 ML IVPB SCH (10:51)
[2023-06-27 11:26] LABS: ANISOCYTOSIS 0; HELMET CELLS 0; HOWELL-JOLLY BODIES 0; MACROCYTOSIS 0; OVALOCYTE 0; ROULEAU 0; SICKELED CELLS 0; TARGET CELLS 0; TEAR DROP CELLS 0; TOXIC GRANULATION 0
[2023-06-27] MEDS: CEFEPIME 2 GM in DEXTROSE 5%-WATER 100 ML IVPB SCH ×2 (12:27→23:39)
[2023-06-27] MEDS: FAT EMULSION/OLIVE/SOY/PHOSPHO 250 ML IV SCH (22:39)
[2023-06-28] MEDS: POTASSIUM CHLORIDE 20 MEQ in AMINO ACIDS 4.25%/D5W 1,000 ML IV SCH ×4 (01:09→22:06)
[2023-06-28] MEDS: VALPROATE SODIUM INJECTION 500 MG in SODIUM CHLORIDE 100 ML IVPB SCH ×3 (01:10→21:38)
[2023-06-28] MEDS: LORazepam 2 MG/ML SDV VIAL IVPUSH PRN (01:55)
[2023-06-28] MEDS: CARBIDOPA/LEVODOPA 25/250 TABLET (FP) NGT SCH ×5 (05:53→21:39)
[2023-06-28] MEDS: QUEtiapine FUMARATE 25 MG TABLET NGT SCH ×2 (10:08→21:39)
[2023-06-28] MEDS: CEFEPIME 2 GM in DEXTROSE 5%-WATER 100 ML IVPB SCH ×2 (10:08→21:40)
[2023-06-28] MEDS: PANTOPRAZOLE SODIUM 40 MG VIAL IVPUSH SCH (10:08)
[2023-06-28] MEDS: levETIRAcetam 500 MG/5 ML INJECTION VIAL IVPB SCH ×2 (10:08→21:39)
[2023-06-28] MEDS: HEPARIN NA (PORCINE) 5,000 UNITS/ML 1ML VIAL SQ SCH ×2 (10:09→21:39)
[2023-06-28 10:25] LABS: POTASSIUM 3.1 mmol/L (3.5-5.1)
[2023-06-28 10:32] LABS: BLOOD UREA NITROGEN 27.7 mg/dL (7-18); CALCIUM 8.1 mg/dL (8.5-10.1)
[2023-06-28 10:33] LABS: BASO % 0.6 % (0-2.0); EOS % 1.7 % (0-4.5); HEMOGLOBIN 8.7 GM/dL (11.7-16.9); LYMPH % 8.4 % (8-40); MCH 30.3 pg (25.7-33.7); MCHC 33.3 g/dl (32.0-35.9); MEAN PLT VOLUME 8.1 fl (7.5-11.1); NEUT % 82.3 % (42.8-82.8); PLATELET COUNT 378 10^3/uL (134-434); RBC 2.86 M/mm3 (4.00-5.60); RDW 13.8 % (11.9-15.9)
[2023-06-28 10:35] LABS: BILIRUBIN,TOTAL 0.2 mg/dL (0.2-1); CREATININE 0.6 mg/dL (0.55-1.3); TOT PROT 5.1 g/dl (6.4-8.2)
[2023-06-28 10:37] LABS: ALBUMIN 1.7 g/dl (3.4-5.0)
[2023-06-28] MEDS ORDERED: SODIUM CHLORIDE 500 ML IV SCH (12:30)
[2023-06-28] MEDS ORDERED: FENTANYL CITRATE/PF 50 MCG/ML VIAL ONE (12:33)
[2023-06-28] MEDS ORDERED: FENTANYL CITRATE/PF 50 MCG/ML VIAL IVPUSH ONE (12:35)
[2023-06-28] MEDS: ACETAMINOPHEN 1000 MG/100 ML BAG IVPB PRN (14:40)
[2023-06-28] MEDS: POTASSIUM CHLORIDE ORAL LIQUID 20 MEQ/15 ML PO SCH ×2 (17:21→21:39)
[2023-06-28] MEDS: KCL 10 MEQ IVPB 10 MEQ/100 ML INFUS.BAG IVPB SCH ×2 (17:22→18:37)
[2023-06-28] MEDS: FAT EMULSION/OLIVE/SOY/PHOSPHO 250 ML IV SCH (21:38)
[2023-06-29] MEDS: CARBIDOPA/LEVODOPA 25/250 TABLET (FP) NGT SCH ×2 (06:34→09:01)
[2023-06-29 08:59] LABS: HEMATOCRIT 25.9 % (35.4-49); HEMOGLOBIN 8.8 GM/dL (11.7-16.9); MCHC 33.9 g/dl (32.0-35.9); MEAN CELL VOLUME 91.5 fl (80-96); MEAN PLT VOLUME 8.2 fl (7.5-11.1); PLATELET COUNT 382 10^3/uL (134-434); RBC 2.83 M/mm3 (4.00-5.60); RDW 13.9 % (11.9-15.9); WHITE BLOOD COUNT 8.9 K/mm3 (4.0-10.0)
[2023-06-29] MEDS: HEPARIN NA (PORCINE) 5,000 UNITS/ML 1ML VIAL SQ SCH ×2 (09:01→23:05)
[2023-06-29] MEDS: PANTOPRAZOLE SODIUM 40 MG VIAL IVPUSH SCH (09:01)
[2023-06-29] MEDS: QUEtiapine FUMARATE 25 MG TABLET NGT SCH (09:01)
[2023-06-29] MEDS: levETIRAcetam 500 MG/5 ML INJECTION VIAL IVPB SCH (09:05)
[2023-06-29 09:19] LABS: POTASSIUM 3.6 mmol/L (3.5-5.1)
[2023-06-29 09:22] LABS: CALCIUM 8.6 mg/dL (8.5-10.1)
[2023-06-29 09:23] LABS: BLOOD UREA NITROGEN 26.4 mg/dL (7-18); MAGNESIUM 1.8 mg/dL (1.8-2.4)
[2023-06-29 09:25] LABS: CREATININE 0.6 mg/dL (0.55-1.3)
[2023-06-29 09:26] LABS: TOT PROT 5.6 g/dl (6.4-8.2)
[2023-06-29 09:28] LABS: BILIRUBIN,TOTAL 0.3 mg/dL (0.2-1)
[2023-06-29] MEDS: CEFEPIME 2 GM in DEXTROSE 5%-WATER 100 ML IVPB SCH ×2 (09:46→23:06)
[2023-06-29 09:53] LABS: ANISOCYTOSIS 1+; MACROCYTOSIS 0; OVALOCYTE 1+
[2023-06-29] MEDS: VALPROATE SODIUM INJECTION 500 MG in SODIUM CHLORIDE 100 ML IVPB SCH (10:51)
[2023-06-29] MEDS ORDERED: ACETAMINOPHEN 650 MG/20.3 ML ORAL SOLUTION (CUPS) PO PRN (11:35)
[2023-06-29] MEDS: CARBIDOPA/LEVODOPA 25/250 TABLET (FP) PEG SCH ×3 (13:48→23:06)
[2023-06-29] MEDS: levETIRAcetam 500 MG/5 ML ORAL SOLUTION (UNIT-DOSE CUPS) PEG SCH (23:04)
[2023-06-29] MEDS: VALPROATE SODIUM 250 MG/5 ML UNIT DOSE CUP PEG SCH (23:05)
[2023-06-29] MEDS: QUEtiapine FUMARATE 25 MG TABLET PEG SCH (23:07)
[2023-06-29] MEDS: LORazepam 2 MG/ML SDV VIAL IVPUSH PRN (23:07)
[2023-06-29 23:34] VITALS: RESP 18
[2023-06-30] MEDS: CARBIDOPA/LEVODOPA 25/250 TABLET (FP) PEG SCH ×5 (06:37→23:43)
[2023-06-30 08:50] LABS: HEMATOCRIT 26.2 % (35.4-49); HEMOGLOBIN 8.9 GM/dL (11.7-16.9); MCH 30.7 pg (25.7-33.7); MCHC 33.9 g/dl (32.0-35.9); MEAN CELL VOLUME 90.6 fl (80-96); MEAN PLT VOLUME 7.7 fl (7.5-11.1); PLATELET COUNT 384 10^3/uL (134-434); RDW 14.4 % (11.9-15.9); WHITE BLOOD COUNT 7.3 K/mm3 (4.0-10.0)
[2023-06-30 10:03] LABS: ANISOCYTOSIS 0; MACROCYTOSIS 1+
[2023-06-30] MEDS: levETIRAcetam 500 MG/5 ML ORAL SOLUTION (UNIT-DOSE CUPS) PEG SCH (10:31)
[2023-06-30] MEDS: VALPROATE SODIUM 250 MG/5 ML UNIT DOSE CUP PEG SCH (10:31)
[2023-06-30] MEDS: HEPARIN NA (PORCINE) 5,000 UNITS/ML 1ML VIAL SQ SCH ×2 (10:31→23:43)
[2023-06-30] MEDS: PANTOPRAZOLE SODIUM 40 MG VIAL IVPUSH SCH (10:31)
[2023-06-30] MEDS: QUEtiapine FUMARATE 25 MG TABLET PEG SCH ×2 (10:31→23:44)
[2023-06-30] MEDS: CEFEPIME 2 GM in DEXTROSE 5%-WATER 100 ML IVPB SCH ×2 (10:32→23:43)
[2023-06-30] MEDS: LORazepam 2 MG/ML SDV VIAL IVPUSH PRN (12:33)
[2023-06-30] MEDS: AMINO ACIDS 4.25%/D5W 1,000 ML IV SCH (13:56)
[2023-06-30] MEDS ORDERED: VALPROATE SODIUM 500 MG/5 ML VIAL IVPB SCH (22:00)
[2023-06-30] MEDS ORDERED: CEFEPIME HCL 2 GM VIAL (RESTRICTED TO ID) ONE (23:38)
[2023-06-30] MEDS: levETIRAcetam 500 MG/5 ML INJECTION VIAL IVPB SCH (23:43)
[2023-06-30] MEDS: VALPROATE SODIUM INJECTION 500 MG in SODIUM CHLORIDE 50 ML IVPB SCH (23:45)
[2023-07-01] MEDS: CARBIDOPA/LEVODOPA 25/250 TABLET (FP) PEG SCH ×5 (07:06→22:15)
[2023-07-01 09:13] LABS: BASO % 0.4 % (0-2.0); EOS % 1.7 % (0-4.5); HEMATOCRIT 28.3 % (35.4-49); HEMOGLOBIN 9.7 GM/dL (11.7-16.9); LYMPH % 12.1 % (8-40); MCH 30.9 pg (25.7-33.7); MCHC 34.2 g/dl (32.0-35.9); MEAN CELL VOLUME 90.2 fl (80-96); MEAN PLT VOLUME 7.4 fl (7.5-11.1); NEUT % 76.8 % (42.8-82.8); PLATELET COUNT 428 10^3/uL (134-434); RBC 3.14 M/mm3 (4.00-5.60); RDW 14.5 % (11.9-15.9); WHITE BLOOD COUNT 8.5 K/mm3 (4.0-10.0)
[2023-07-01 09:38] LABS: POTASSIUM 3.8 mmol/L (3.5-5.1)
[2023-07-01 09:43] LABS: CALCIUM 8.9 mg/dL (8.5-10.1)
[2023-07-01 09:44] LABS: ALBUMIN 2.1 g/dl (3.4-5.0); BLOOD UREA NITROGEN 24.8 mg/dL (7-18)
[2023-07-01 09:47] LABS: CREATININE 0.7 mg/dL (0.55-1.3)
[2023-07-01 09:49] LABS: BILIRUBIN,TOTAL 0.8 mg/dL (0.2-1); TOT PROT 6.2 g/dl (6.4-8.2)
[2023-07-01] MEDS: CEFEPIME 2 GM in DEXTROSE 5%-WATER 100 ML IVPB SCH ×2 (10:02→22:38)
[2023-07-01] MEDS: levETIRAcetam 500 MG/5 ML INJECTION VIAL IVPB SCH (10:02)
[2023-07-01] MEDS: QUEtiapine FUMARATE 25 MG TABLET PEG SCH ×2 (10:02→22:15)
[2023-07-01] MEDS: PANTOPRAZOLE SODIUM 40 MG VIAL IVPUSH SCH (10:02)
[2023-07-01] MEDS: VALPROATE SODIUM INJECTION 500 MG in SODIUM CHLORIDE 50 ML IVPB SCH (13:23)
[2023-07-01] MEDS: AMINO ACIDS 4.25%/D5W 1,000 ML IV SCH (14:00)
[2023-07-01] MEDS ORDERED: MINERAL OIL 30 ML UNIT-DOSE CUP TP PRN (14:39)
[2023-07-01] MEDS ORDERED: ACETAMINOPHEN 1000 MG/100 ML BAG IVPB PRN (17:20)
[2023-07-02] MEDS: levETIRAcetam 500 MG/5 ML INJECTION VIAL IVPB SCH ×3 (01:45→22:27)
[2023-07-02] MEDS: CARBIDOPA/LEVODOPA 25/250 TABLET (FP) PEG SCH ×5 (05:25→22:07)
[2023-07-02] MEDS ORDERED: LORazepam 2 MG/ML SDV VIAL IVPUSH ONE (08:36)
[2023-07-02 08:43] LABS: BASO % 0.5 % (0-2.0); EOS % 1.3 % (0-4.5); HEMATOCRIT 26.5 % (35.4-49); HEMOGLOBIN 9.1 GM/dL (11.7-16.9); LYMPH % 14.7 % (8-40); MCH 31.3 pg (25.7-33.7); MCHC 34.4 g/dl (32.0-35.9); MEAN CELL VOLUME 91.1 fl (80-96); MEAN PLT VOLUME 7.1 fl (7.5-11.1); MONO % 9.4 % (3.8-10.2); NEUT % 74.1 % (42.8-82.8); PLATELET COUNT 375 10^3/uL (134-434); RBC 2.91 M/mm3 (4.00-5.60); WHITE BLOOD COUNT 10.1 K/mm3 (4.0-10.0)
[2023-07-02] MEDS ORDERED: levETIRAcetam 500 MG/5 ML INJECTION VIAL IVPB ONE (09:15)
[2023-07-02] MEDS: PANTOPRAZOLE SODIUM 40 MG VIAL IVPUSH SCH (09:18)
[2023-07-02] MEDS: CEFEPIME 2 GM in DEXTROSE 5%-WATER 100 ML IVPB SCH ×2 (09:18→23:25)
[2023-07-02] MEDS: HEPARIN NA (PORCINE) 5,000 UNITS/ML 1ML VIAL SQ SCH ×2 (09:18→22:07)
[2023-07-02] MEDS: QUEtiapine FUMARATE 25 MG TABLET PEG SCH ×2 (09:24→22:08)
[2023-07-02] MEDS: VALPROATE SODIUM INJECTION 500 MG in SODIUM CHLORIDE 50 ML IVPB SCH ×2 (12:52)
[2023-07-02] MEDS: AMINO ACIDS 4.25%/D5W 1,000 ML IV SCH (12:52)
[2023-07-02] MEDS: LORazepam 2 MG/ML SDV VIAL IVPUSH PRN (17:38)
[2023-07-02] MEDS ORDERED: CEFEPIME HCL 2 GM VIAL (RESTRICTED TO ID) ONE (21:20)
[2023-07-02] MEDS ORDERED: VALPROATE SODIUM 500 MG/5 ML VIAL IVPB SCH (22:00)
[2023-07-02] MEDS ORDERED: VALPROATE SODIUM INJECTION 750 MG in SODIUM CHLORIDE 100 ML IVPB SCH (22:00)
[2023-07-03] MEDS: CARBIDOPA/LEVODOPA 25/250 TABLET (FP) PEG SCH ×5 (06:10→21:52)
[2023-07-03] MEDS: levETIRAcetam 500 MG/5 ML ORAL SOLUTION (UNIT-DOSE CUPS) PEG SCH ×2 (09:56→21:52)
[2023-07-03] MEDS: HEPARIN NA (PORCINE) 5,000 UNITS/ML 1ML VIAL SQ SCH ×2 (09:56→21:53)
[2023-07-03] MEDS: VALPROATE SODIUM 250 MG/5 ML UNIT DOSE CUP PEG SCH ×2 (09:56→21:52)
[2023-07-03] MEDS: PANTOPRAZOLE SODIUM 40 MG VIAL IVPUSH SCH (09:57)
[2023-07-03] MEDS: QUEtiapine FUMARATE 25 MG TABLET PEG SCH ×2 (09:57→21:53)
[2023-07-03] MEDS: CEFEPIME 2 GM in DEXTROSE 5%-WATER 100 ML IVPB SCH (10:42)
[2023-07-03 11:10] LABS: BASO % 0.5 % (0-2.0); EOS % 1.1 % (0-4.5); HEMATOCRIT 25.2 % (35.4-49); HEMOGLOBIN 8.5 GM/dL (11.7-16.9); LYMPH % 10.5 % (8-40); MCH 30.7 pg (25.7-33.7); MCHC 33.7 g/dl (32.0-35.9); MEAN CELL VOLUME 91.1 fl (80-96); MEAN PLT VOLUME 7.4 fl (7.5-11.1); MONO % 7.8 % (3.8-10.2); NEUT % 80.1 % (42.8-82.8); PLATELET COUNT 316 10^3/uL (134-434); RBC 2.76 M/mm3 (4.00-5.60); RDW 15.3 % (11.9-15.9); WHITE BLOOD COUNT 10.6 K/mm3 (4.0-10.0)
[2023-07-03] MEDS: LORazepam 2 MG/ML SDV VIAL IVPUSH PRN ×2 (13:36→21:47)
[2023-07-03] MEDS ORDERED: ACETAMINOPHEN 650 MG/20.3 ML ORAL SOLUTION (CUPS) PEG PRN (15:45)
[2023-07-04] MEDS: CARBIDOPA/LEVODOPA 25/250 TABLET (FP) PEG SCH ×4 (06:50→17:31)
[2023-07-04] MEDS ORDERED: AMINO ACIDS/PROTEIN HYDROLYS 30 ML LIQUID.PKT PO SCH (08:00)
[2023-07-04 08:29] LABS: BASO % 0.6 % (0-2.0); EOS % 2.5 % (0-4.5); HEMATOCRIT 26.7 % (35.4-49); HEMOGLOBIN 8.9 GM/dL (11.7-16.9); MCH 30.7 pg (25.7-33.7); MCHC 33.3 g/dl (32.0-35.9); MEAN CELL VOLUME 92.2 fl (80-96); MEAN PLT VOLUME 7.3 fl (7.5-11.1); MONO % 6.8 % (3.8-10.2); NEUT % 78.1 % (42.8-82.8); PLATELET COUNT 285 10^3/uL (134-434); RBC 2.89 M/mm3 (4.00-5.60); RDW 15.7 % (11.9-15.9); WHITE BLOOD COUNT 7.5 K/mm3 (4.0-10.0)
[2023-07-04] MEDS: HEPARIN NA (PORCINE) 5,000 UNITS/ML 1ML VIAL SQ SCH (10:43)
[2023-07-04] MEDS: VALPROATE SODIUM 250 MG/5 ML UNIT DOSE CUP PEG SCH (10:43)
[2023-07-04] MEDS: levETIRAcetam 500 MG/5 ML ORAL SOLUTION (UNIT-DOSE CUPS) PEG SCH (10:43)
[2023-07-04] MEDS: PANTOPRAZOLE SODIUM 40 MG VIAL IVPUSH SCH (10:44)
[2023-07-04] MEDS: QUEtiapine FUMARATE 25 MG TABLET PEG SCH (10:46)
[2023-07-04] MEDS: LORazepam 2 MG/ML SDV VIAL IVPUSH PRN (12:18)
[2023-07-04 15:00] VITALS: BP 138/63; PULSE 70; TEMP 98.3
== END 2023-07-04 18:48 | DRG 871 ==
LOC: JER 02:39 → JERBED 05:04 → J4W 06-11 06:06 → J8W 06-17 20:54
PROVIDERS: ADMIT Internal Medicine; ATTEND Nurse Practitioner Family
DX: A41.50 Gram-negative sepsis, unspecified (principal); E43 Unspecified severe protein-calorie malnutrition; J18.9 Pneumonia, unspecified organism; R53.2 Functional quadriplegia; R65.21 Severe sepsis with septic shock; G93.41 Metabolic encephalopathy; M62.82 Rhabdomyolysis; I24.89 Other forms of acute ischemic heart disease; I47.10 Supraventricular tachycardia, unspecified; I48.92 Unspecified atrial flutter; Z68.1 Body mass index [BMI] 19.9 or less, adult; N39.0 Urinary tract infection, site not specified; N17.9 Acute kidney failure, unspecified; E87.29 Other acidosis; E87.0 Hyperosmolality and hypernatremia; E86.0 Dehydration; R50.9 Fever, unspecified; I95.9 Hypotension, unspecified; G20.A1 Parkinson's disease without dyskinesia, without mention of fluctuations; R56.9 Unspecified convulsions; F03.90 Unspecified dementia, unspecified severity, without behavioral disturbance, psychotic disturbance, mood disturbance, and anxiety; E78.5 Hyperlipidemia, unspecified; I10 Essential (primary) hypertension; F32.9 Major depressive disorder, single episode, unspecified; M51.36 Other intervertebral disc degeneration, lumbar region; M48.061 Spinal stenosis, lumbar region without neurogenic claudication; Z95.0 Presence of cardiac pacemaker
CPT/HCPCS: 0241U-QW; 36415; 49440; 70450-TC; 71045-TC-FY; 71250-TC; 72125-TC; 72128-TC; 72131-TC; 72170-TC-FY; 74018-TC-FY; 74150-TC; 76775-TC; 76856-TC; 76870-TC; 80048; 80053; 80076; 80164; 80177; 81003; 82550; 82553; 82803; 82962; 83605; 83735; 83935; 84100; 84439; 84443; 84478; 84484; 85025; 85027; 85610; 86704; 86803; 87040; 87086; 87186; 87389; 87522; 87635; 93005; 93010; 93306-TC; 97161-GP; 99285-25; G0480; J1644